=== PATIENT | male | born 1995 | race American Indian/Alaskan Native ===

== ENCOUNTER 2017-02-03 09:00 | Outpatient (RCR) | payer MEDICARE, MEDICAID, SELFPAY ==
--- NOTE | 2016-09-18 09:52 | HP.SP.AD ---
History - History Date of Eval: 09/16/16 Medical Diagnosis (from RX): CP Date of Onset of Diagnosis: 09/17/16 Previous speech therapy: Yes Results: Previously received speech therapy at [facility] and was introduced to AAC using Touch Chat with I Pad in 2011. 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 Mother is interested in possibly obtaining a keyguard for the device and mounting mechanism for wheelchair. Mother reported that the number of selections per page is too great and patient is unable to use the device for functional communcation. Objective AAC - AAC Objective: Patient was able to access device ( IPAD with touchLucidLogix Technologiest program) on table from wheelchair when it was placed on stand, created by family. Patient did not independently attempt to use device to communcate during session and needed prompting from mother and BONDING SUPERVISOR to make requests with device. - Comments Functional use -: Patient is currently only using device on select occasions and does not take with him to [facility]. Patient was unable to naviagate to different areas on the device due to many options per page (15+ selections per page). BONDING SUPERVISOR needed to navigate to snack page due to patient being unable to naviagate 3 dynamic levels, but once on snack page patient was able to make selections between 4 options with verbal and visual modeling. Patient was able to cognitively select between 4 choices that were in 4 different quadrants of the screen during session when prompting from mother using verbal and visual cues. Patient was able to make an alternate selection when one choice was taken away with prompts from mother. Mobility -: Patient was able to move cross body and across a 2 foot range to make choices from 4 selection options in four different quadrants of the screen. When attempting to select a button on the top left of the screen patient would select a button in the middle of the screen with the other side of his hand. Communication -: Patient used verbal utterances that were highly unintelligible to attempt to communicate during session. Patient used hand movements and verbal noises during session when interacting with mother. Mother expressed that patient speech abilites can vary throughout the day. Patient was unable to use device during session to effectively express wants and needs without maximal cuing from mother. Plan - Plan Plan: Speech therapy is warranted to address functional communication needs. He has minimal functional communication abilities currently. - Recommendations Treatment Warranted: Yes - Frequency Frequency: 1x/Week Visits in this POC: 8 - Prognosis Prognosis: Good - Goals that are Established: Determination:: Goals will be added/modified as deemed necessary and appropriate. Therapy will be discontinued when results of re-evaluation indicate therapy is no longer needed or lack of progress has been documented. - Goal #1-5 Goal #1: Edwin will request tangible objects with a single noun symbol given a field of 4-8 choices with minimal cuing on 4/5 trials on 4 consecutive sessions. Prompts: Min Goal #2: Edwin will make a choice between 2-4 categories to functionally communicate wants/needs on 4/5 trials on 4 consecutive sessions. Prompts: Min G Codes - Type of Therapy Type of Therapy: Speech-Language Pathology - Other BONDING SUPERVISOR Other BONDING SUPERVISOR Current: CN - 100% Other BONDING SUPERVISOR Goal: CL - 60-79% - Therapy Cap Exclusion Therapy Cap Exclusion: Submit to Medicare Education - Patient Instruction Patient Education: Diagnosis, Treatment Plan Person Taught: Family Teaching Method: Discussion Response to teaching: Verbalize understanding
--- NOTE | 2016-12-09 12:07 | HP.SP.ADRE ---
Previous/Current Goals - Goals 1-5 Previous Goal #1: Edwin will request tangible objects with a single noun symbol given a field of 4-8 choices with minimal cuing on 4/5 trials on 4 consecutive sessions. Goal 1 Status: Previously: Edwin was unable to choose any buttons with any accuracy. It was random pushing. He is now able to make food choices in a field of 4 choices on 3/5 trials with maximal cues. He is able to make a choice of what song he would like in a field of 4 as well as pick a book in a field of 4 books. He continues to need maximal cues to make a choice and mother often asks what do you want now Edwin? Goal to continue. Previous Goal #2: Edwin will make a choice between 2-4 categories to functionally communicate wants/needs on 4/5 trials on 4 consecutive sessions. Goal 2 Status: Previous, Edwin was not able to choose any categories consistently. Edwin is able to consistently push choose the food category then snacks button then make a choice. Occasionally he will utlize things button to make other choices ( music, books, ipad) but these are inconsistent. Goal to continue. 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 Objective AAC - AAC Objective: Edwin is able to now make a choice of several buttons with regards to pages of snacks, songs, books and videos on 3/5 trials with maximal cues. He continues to need maximal cues to make any choice but once cued he will make a choice. - Comments Functional use -: Patient is currently only using device on select occasions and does not take with him to [facility]. Patient was unable to naviagate to different areas on the device due to many options per page (15+ selections per page). SUPERVISOR WATER SOFTENER SERVICE needed to navigate to snack page due to patient being unable to naviagate 3 dynamic levels, but once on snack page patient was able to make selections between 4 options with verbal and visual modeling. Patient was able to cognitively select between 4 choices that were in 4 different quadrants of the screen during session when prompting from mother using verbal and visual cues. Patient was able to make an alternate selection when one choice was taken away with prompts from mother. Mobility -: Edwin is able to reach for AAC device. The device is able to be placed in front of Edwin. He intermittently touchs touch buttons ( one with pointer finger at the same time as side of hand/ other finger knuckle touches). To prevent that from occuring device is placed at angle so Edwin's hand comes straight at the device rather than from the side. He uses his right hand to activiate buttons. Communication -: Edwin is not able to effectively communicate to listeners in all areas. At this time he is using his AAC device only at home. He only uses it when his mother presents it during practice times. Edwin needs prompts to communciate with device as oral communciation is not effective or accuate. Edwin's current goals are to continue. Edwin is not able to go back to make different choices on a different page. He is not able to choose the home button to start over either. Timing -: Edwin's appointments are mainly in the morning. One session was in the afternoon following medications and Edwin fell asleep. Plan - Plan Plan: Speech therapy is warranted to continue to faciliate training on AAC device for functional communication needs. - Recommendations Treatment Warranted: Yes - Frequency Frequency: Every Other Week Duration: 8 - Prognosis Prognosis: Good - Goals that are Established: Determination:: Goals will be added/modified as deemed necessary and appropriate. Therapy will be discontinued when results of re-evaluation indicate therapy is no longer needed or lack of progress has been documented. - Goal #1-5 Goal #1: Edwin will request tangible objects with a single noun symbol given a field of 4-8 choices with minimal cuing on 4/5 trials on 4 consecutive sessions. Goal #2: Edwin will make a choice between 2-4 categories to functionally communicate wants/needs on 4/5 trials on 4 consecutive sessions.
--- NOTE | 2017-01-13 12:01 | HP.PTEVAL_ITS ---
Patient's Visit Information KRISHAN CORONA is a 21 year old M referred to Physical Therapy by Deuce Gee MD with a diagnosis of CP spasticity.. Date of Evaluation: 01/13/17 Physical Therapist: Daquan Jefferson DPT, OC - Visit Plan Frequency: 2x /Week Duration: 4-6 Weeks Plan: At this point pt is walking well. He has tonal abnormalities in LE that need stretched and managed at home with positionining and stretches. He needs to be encouraged to be in his stander often and walking with increasing frequency. 1. please teach mom and patient(as able) HS, hip flexor, and LE PROM exercises as well as pec stretch and flat supine and prone position. 2. Encourage to walk back to table and walk out of PT. 3., Emphasis should be on teaching mom(or patient) to stretch in order to work to HEP quickly. - Subjective Subjective: Neurologist noticed more tigthness in legs back in eb and will consider increasing baclofen but then decided to leave it alone. Is on Oral baclofen. Mom/racqueldian brings him today. This is not significantly effecting function but when they put his brace on, he slides to edge of chair due to HS tightness. this is worsening. He walks with 2 forearm crutches and supervision and help getting crutches on arms and can walk around backyard. Getting up out of chair is getting harder. Sleeps in low bed on stomach or side. Can get in and out of bed himself. Spends day at adult day program at [facility] and just finished school in May of this year. Spends day socializing at [facility] and walks a little bit when there. He can propel his own chair. He is cognitivelya t 2-3 yo level. enjoys making sound with guitar. Likes watching footabll without sound. Has many sensory issues. Has had PT at [facility] in past and sometimes in rehab in [place]. Walks at home and uses stander, used to use it for an hour but down to 30 min a couple times per week. - Objective Has R HKAFO for tibial torsion and AFO on L. Pt is nonverbal and only obedient 20%(handshake and to get up and walk) otherwise will not lift arms OH for me. Has some behavioral issues with violent shaking of head or self slapping of face. Otherwise, he and his mom are friendly and agreeable. Pt is pushed back to PT in wheelchair, has B forearm crutches for ambulation. Sit to stand after mom straps weigthed crutch to R hand mod I. stand to sit Mod I. Walks with B forearm canes 250 feet today with short steps and knees stay flexed due to HS contracture to about 25 degrees, hips slightly felxed and hunched in LB. Despuite this, he is sBA with forearm canes. Stps are performed with two railings(which they have at home) using L foot to ascend and stepping down to L foot with SBA, appears slightly fearful coming down steps. sit to supine Min A at LE to R side as R arm is functional vs L. Stays semi R sidelying. To sit is slow but I via R sidelying. Sits I without support and reaches well for handshake. L hand has benik splint and only slightly squeezes adn no functional movement at wwrist and very little at elbow. R UE is functional with strength and movement although he does nto obey enough to test strength/AROM. HKAFOs fit well as does AFO. Has alot of tone in HS and DF and hip flexors adn mild tone in medial adductors B. 90/90 test is difficult due to tone in legs. Tone felt within 10 degrees of elevating B legss off table. Have to push knees into full ext. Hps stay flexed 20 degrees when lying down due to tone. Ankles have very little PROM and nil aROM today. PF is easier passively then DF. AFOs have kept him in fairly neutral position overall. Pt is unable to stand on own without canes. - Goals Goal 1:: Mom I in approp stretches for spastic muscles Goal Time Frame: 4-6 Weeks Goal 2:: Pt and mom able to assume neutral positioning at home regularly in supine or prone to help manage spasticity. Goal Time Frame: 4-6 Weeks Goal 3:: Pt in stander 60 minutes each day Goal Time Frame: 4-6 Weeks - Rehabilitation Potential Physical Therapy Diagnosis: CP, spaticity. Has some increasing tone and more hesitancy to stand walk according to mom. Rehabilitation Potential: Fair - Anticipated Interventions Patient/Client Instruction: Educate patient on: Condition, Plan of Care For the Purpose of:: To increase ROM, To improve nutrient delivery to tissue, To improve gait and locomotor functions, To increase flexibility/ROM Therapeutic Exercise to Include: Flexibilty training, Gait and locomotor training Thank you for the opportunity to evaluate your patient. For Medicare and Medicare HMO plans, please review the plan of care and approve it. It will need to be FAXED BACK to us at [phone] for Medicare purposes. Please let me know if there are questions or concerns regarding this plan of care. Physician Signature: Date:
--- NOTE | 2017-01-27 16:30 | HP.PTDCSUM ---
HP - PT D/C Summary It has been my pleasure to treat KRISHAN CORONA under orders from Deuce Gee MD, for the diagnosis of CP spasticity. for a total of 5 visit(s). Discharge Date: 01/27/17 Please see the following information for a summary of their discharge status. - Subjective Subjective: Pt's caregiver states that she has been stretching him regularly and using stander each day. Difficylty getting him to lie prone. - Objective Objective/Function: Able to walk two full laps today. Rested for approximately 1 minute between laps. Not fatigued but slightly distracted. - Goals Goal 1:: Mom I in approp stretches for spastic muscles Goal Progress: Goal Met Goal 2:: Pt and mom able to assume neutral positioning at home regularly in supine or prone to help manage spasticity. Goal Progress: Progressing Goal 3:: Pt in stander 60 minutes each day Goal Progress: Progressing - Plan Plan: Re-check with [facility] PT at 1600. - D/C Information Discharge Comments: Mom confident and comfortable with home stretches and continuing to progress walkign and stander time. Will f.u with doctor in June and call if problems. If there are questions or concerns regarding this patient's physical therapy, please feel free to call me at [phone]. Thank you for the referral of this patient. Sincerely, Daquan Jefferson, DPT, OC
--- NOTE | 2017-03-25 11:17 | HP.SP.DC ---
ST Discharge Summary - Discharged: Discharge: Edwin Terrell is discharged from [facility] as of March 25, 2017 at the request of his mother. He was evaluated on December 09, 2016 with therapy recommended initially weekly, then decreased to every other week then monthly. He was treated for a total of 11 visits. His goals focused on using his AAC device to make choices. Therapy also was in support of his mother who was educated on using his device. Edwin made 10 food snacks choices between four foods. He was able to change to a new food choice on 3/5 trials. Edwin was able to choose one from a field of 4 germaine songs with maximal cues so he was able to listen to [employer] songs. Edwin was able to choose 3 categories deep to obtain food choices. Maximal cues needed for new choices of categories. Progress was very slow due to cognitive deficits. His mother requested discharge as she stated that she knows progress will be very slow and will continue to work with him at home. A copy of this discharge summary will be sent to his referring physician.
== END 2017-02-03 19:00 | disposition home or self-care (01) ==
LOC: SP 09:00
PROVIDERS: Family Provider Family Medicine; PCP Family Medicine; Visit Provider Family Medicine
DX: G80.9 Cerebral palsy, unspecified (principal)
CPT/HCPCS: 92507; 92607; 92609; 97110; 97116; 97163; 97530; G8978; G8979; G8980; G9174; G9175

== ENCOUNTER 2017-08-12 08:00 | Outpatient (RCR) | payer MEDICARE, MEDICAID, SELFPAY ==
--- NOTE | 2017-07-29 10:25 | HP.OTEVAL_ITS ---
Patient's Visit Information KRISHAN CORONA is a 22 year old M, referred to Occupational Therapy by Barbara Mascorro MD, with a diagnosis of sensory integration d/o. Date of Evaluation: 07/22/17 Occupational Therapist: Patti Mckeon - Subjective Subjective: Pt seen for initial occupational therapy evaluation for sensory integration disorder. Pt attends work shop MWF all day and TR 1/2 days and has been demonstrating increased agitation with workers and peers, especially when he hears specific sounds like someone sneezing or coughing. Pt demonstrates concerns with hitting himself or head butting and biting staff. Pt lives with his adopted mother, father and older brother. He has staff come in to assist with ADL's in afternoons. - Objective Objective/Observation: Pt primarily w/c bound with costumized w/c. He will walk w/ crutches and physical assist short distances. Pt demo kyphotic posture and likes to hold his mother's hand using his L hand. He is very observent. He does not like sounds of coughing or sneezing. Easily agitated. - ROM ROM Comments: limited B UE ROM secondary to tone BUE shoulder flexion 110' - Strength Strength Comments: BUE generalized MMT 4/5 - Edema Other: No edema noted. - Goals Goal:: Pt will be able to use a variety of 3 different tools/strategies to calm self and decrease self harming behaviors in 3/4 trials. Goal:: Pt will be able to find calming tools/strategies to help calm self with no self harming behaviors for 15 minutes in 2/3 trials. Goal:: Pt/parents will be educated on sensory tools/strategies to decrease sensory vulnerability concerns and decrease self harm with good understanding and demo 100%x - Rehabilitation General Assessment: Pt was born at 28 wks. He had a major brain bleed, his mother never had any work. 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 He has a shunt on L side of his head. He lives with father, mother and older brother. He also has aides in house to assist with ADLs. He has demonstrated increased behaviors at workshop daily with hitting self (primarily R side of face) or headbutting, bitting staff. He has a communication device that is will use when he wants and likes to rock. Noises such as, sneezing, coughing, cleaning dishes will set pt off. Pt will put earmuff on but they frequently fall off, slower music helps or holding his hand. He likes routine and looking through magazines. They have trialed a weighted blanket and brushing techniques but really no difference made. He likes to rock and use to like to swing when younger. Rehabilitation Potential: Fair - Anticipated Interventions Anticipated Interventions: Caregiver Training, Home Program Other Interventions: Therapeutic Activities, Sensory Integration - Visit Plan Frequency: 1x/Week Duration: 4 Weeks General Plan: educate on tools/strategies to decrease self harming behaviors and calm pt. TEXT: Thank you for the opportunity to evaluate your patient. For Medicare and Medicare HMO plans, please review the plan of care and approve it. It will need to be FAXED BACK to us at [phone] for Medicare purposes. Please let me know if there are questions or concerns regarding this plan of care. Physician Signature: Date:
--- NOTE | 2017-08-25 10:53 | HP.OT.NRP ---
HP - Discharge Summary - Patient Information KRISHAN CORONA was seen in my office for initial evaluation on 07/22/17. The following Plan of Care was established for this patient: Initial Frequency: 1x/Week Initial Duration: 4 Weeks Plan: cont POC - Anticipated Interventions Anticipated Interventions: Caregiver Training, Home Program Other Interventions: Therapeutic Activities, Sensory Integration This patient was last seen in our office 08/12/17. Pertinent comments regarding their Occupational therapy will appear below: Pt/mother was last seen by OT on 08/12/17. Pt/mother have been educated by OTR/Mariela and MARCIA on different sensory tools/strategies to trial at home and adult workshop with pt to help calm him and decrease self harming behaviors of hitting himself in the face. Pt's mother demo good understanding of variety of tools/strategies to use. D/C OT services at this time, no longer requires skilled OT services. Phone call with pt's mother regarding tools/strategies and she did not see any more needs to bring her son in for at this time. No longer requires skilled OT services. At this point I will be discontinuing this patient from occupational therapy. I would be happy to see this patient again in the future if found appropriate by the physician. Thank you! Patti Mckeon
== END 2017-08-12 19:00 | disposition home or self-care (01) ==
LOC: OT 08:00
PROVIDERS: Family Provider Family Medicine; PCP Family Medicine; Visit Provider Psychiatry & Neurology Child & Adolescent Psychiatry
DX: F88 Other disorders of psychological development (principal)
CPT/HCPCS: 97166; 97530